=== PATIENT | female | born 1955 | race Hispanic/Latino ===

== ENCOUNTER 2020-04-14 20:28 | Emergency (ER) | payer OTHER ==
--- OUTSIDE RECORDS SUMMARY | 2020-04-14 20:30 | XMS REPORT | Summary of Care ---
:1955 Author Organization [facility] - Health Address [address] [place] [address] Care Team Providers Name Role Phone Destinee Primary Care Provider Encounter Details Date Type Department Care Team Description 02/06/2020 Orders Only [facility] Doctor Unassigned, No [address] [facility] Name [place] [phone] [place] [phone] Allergies Active Allergy Reactions Severity Noted Date Comments Sulfa (Sulfonamide Antibiotics) Rash 9 Sulfamethoxazole Nausea and/or Vomiting Medium 03/21/2016 documented as of this encounter (statuses as of 02/06/2020) Medications Medication Sig Dispensed Refills Start Date End Date Status atorvastatin (LIPITOR) Take 10 mg by 0 Active 10 mg tablet mouth daily. amLODIPine 5 mg tablet 0 08/26/2019 Active anastrozole 1 mg tablet Take by mouth 0 10/10/2019 Active losartan-hydrochlorothi 0 10/23/2019 Active azide 100-12.5 mg per tablet naproxen 375 mg Take 1 tablet by 60 tablet 1 10/31/2019 Active tabletIndications: Left mouth 2 (two) ear pain times daily with meals. documented as of this encounter (statuses as of 02/06/2020) Active Problems No known active problemsdocumented as of this encounter (statuses as of 02/06/2020) Social History Tobacco Use Types Packs/Day Years Used Date Never Smoker Smokeless Tobacco: Never Used Alcohol Use Drinks/Week oz/Week Comments No 0 Standard drinks or equivalent 0.0 Sex Assigned at Date Recorded Not on file Job Start Date Occupation Industry Not on file Not on file Not on file Travel History Travel Start Travel End No recent travel history available. documented as of this encounter Last Filed Vital Signs Not on filedocumented in this encounter Plan of Treatment Date Type Specialty Care Team Description 02/06/2020 Appointment Radiology Diandra Felipe [address] [place], [place] [phone] Health Maintenance Due Date Last Done Comments HEPATITIS C (HCV) SCREEN 1955 DTaP,Tdap,and Td Vaccines 1967 (1 - Tdap) COLONOSCOPY 2006 Zoster Recombinant Vaccine 2006 (SHINGRIX) (1 of 2) PAP SMEAR 04/08/2011 04/08/2008, 01/18/2005, 01/27/2004 INFLUENZA VACCINE (#1) 2019 Breast Cancer Screening 03/06/2020 03/06/2019, 03/05/2018, (MAMMOGRAM) 02/28/2017, Additional history exists PNEUMOCOCCAL 0-64 YEARS Aged Out No longe r eligible COMBINED SERIES based on patient 's age to complete this topic documented as of this encounter Procedures Procedure Name Priority Date/Time Associated Diagnosis Comme nts ASSIGNMENT OF BENEFITS Routine 02/06/2020 9:33 AM CDT documented in this encounter Results Not on filedocumented in this encounter Insurance Payer Benefit Plan / Subscriber ID Effective Dates Phone Addre ss Type Group [facility] [id number] 2017-Prese HMO/ PPO/[facility] PPO nt S documented as of this encounter
--- OUTSIDE RECORDS SUMMARY | 2020-04-14 20:30 | XMS REPORT | Summary of Care ---
:1955 Author Organization [facility] Address [address] [place] [address] Care Team Providers Name Role Phone Felipe Primary Care Provider Reason for Visit Reason Comments DYSURIA patient states she is having discomfort " down there" Back Pain left lower backpain Pelvic Pain Nausea started today Encounter Details Date Type Department Care Team Description 01/24/2020 Urgent Care [facility] Unknown, Attending A cute cystitis without hematuria (Primary Dx); Urgent Care Sam Mauricio PA-C [address] [place] [phone] Dysuria [address] [place] [phone] Allergies Active Allergy Reactions Severity Noted Date Comments Sulfa (Sulfonamide Antibiotics) Rash 9 Sulfamethoxazole Nausea and/or Vomiting Medium 03/21/2016 documented as of this encounter (statuses as of 01/24/2020) Medications Medication Sig Dispensed Refills Start Date End Date Status atorvastatin Take 10 mg by 0 Act brian (LIPITOR) 10 mg mouth daily. tablet amLODIPine 5 mg 0 08/26/2019 Act brian tablet anastrozole 1 mg Take by mouth 0 10/10/2019 Active tablet losartan-hydrochlorot 0 10/23/2019 Active hiazide 100-12.5 mg per tablet naproxen 375 mg Take 1 tablet by 60 tablet 1 10/31/2019 Active tabletIndications: mouth 2 (two) Left ear pain times daily with meals. Nitrofurantoin&Nit. Take 1 capsule 14 capsule 0 01/24/2020 Active Macrocryst (MACROBID) by mouth 2 (two) 100 mg times daily for capsuleIndications: 7 days. Acute cystitis without hematuria documented as of this encounter (statuses as of 01/24/2020) Active Problems No known active problemsdocumented as of this encounter (statuses as of 01/24/2020) Social History Tobacco Use Types Packs/Day Years [...] of this encounter Last Filed Vital Signs Vital Sign Reading Time Taken Comments Blood Pressure 134/88 01/24/2020 7:05 PM [employer] Pulse 75 01/24/2020 7:04 PM [employer] Temperature 36.9 C (98.4 F) 01/24/2020 7:04 PM [employer] Respiratory Rate 18 01/24/2020 7:04 PM [employer] Oxygen Saturation 97% 01/24/2020 7:04 PM [employer] Inhaled Oxygen Concentration - - Weight 68.7 kg (151 lb 6.4 oz) 01/24/2020 7:04 PM [employer] Height 160 cm (5' 3") 01/24/2020 7:04 PM [employer] Body Mass Index 26.82 01/24/2020 7:04 PM [employer] documented in this encounter Patient Instructions Patient InstructionsSam Mauricio PA-C - 01/24/2020 6:45 PM CST Understanding Urinary Tract Infections (UTIs) Most UTIs are caused by bacteria, although they may also be caused by viruses or fungi. Bacteria from the bowel are the most common source of infection.The infection may start because of any of the following: Sexual activity. During sex, bacteria can travel from the penis, vagina, or rectum into the urethra. Bacteria on the skinoutside the rectum may travel into the urethra. This is more common in women since the rectum and urethra are closer to each other than in men. Wiping from front to back after using the toilet and keeping the area clean can help prevent germs from getting to the urethra. Blockage of urine flow through the urinary tract. If urine sits too long, germs may start to growout of control. Parts of the urinary tract The infection canoccur in any part of the urinary tract. The kidneys collect and store urine. The ureters carry urine from the kidneys to the bladder. The bladder holds urine until you are ready to let it out. The urethra carries urine from the bladder out of the body. It is shorter in women, so bacteria can move throughit more easily.The urethra is longer in men, so a UTI is less likely to reach the bladder or kidneys in men. [employer] last reviewed this educational content on 11/20/201619995289-3858 [employer]. [address] [place] [address], [place] [address]. All rights reserved. This information is not intended as a substitute for professional medical care. Always follow your healthcare professional's instructions. 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 URINARY TRACT INFECTION Patient presents to clinic today with complaints of dysuria and frequency. This is a new problem. The current episode started today. The problem is unchanged. The pain is mild. There has been no fever.She describes her urine color as yellow. Associated symptoms include nausea. Pertinent negatives include no abdominal pain, chills, discharge, fever or vomiting. She has tried nothing for the symptoms. Allergies Liliana is allergic to sulfamethoxazole and sulfa (sulfonamide antibiotics). Medications Outpatient Medications Prior to Visit Medication Sig Dispense Refill amLODIPine 5 mg tablet anastrozole 1 mg tablet Take by mouth losartan-hydrochlorothiazide 100-12.5 mg per tablet naproxen 375 mg tablet Take 1 tablet by mouth 2 (two) times daily with meals. 60 tablet 1 atorvastatin (LIPITOR) 10 mg tablet Take 10 mg by mouth daily. No facility-administered medications prior to visit. Histories Past Medical History: Diagnosis Date Breast cancer Chronic back pain Hyperlipidemia Hypertension Past Surgical History: Procedure Laterality Date BREAST BIOPSY BREAST LUMPECTOMY Left 03/23/2016 Surgeon: Anil Bentley MD; Location: [facility] LIPOMA EXCISION Abdomen Social History Socioeconomic History Marital status: Spouse name: Not on file Number of children: Not on file Years of education: Not on file Highest education level: Not on file Occupational History Not on file Social Needs Financial resource strain: Not on file Food insecurity: Worry: Not on file Inability: Not on file Transportation needs: Medical: Not on file Non-medical: Not on file Tobacco Use Smoking status: Never Smoker Smokeless tobacco: Never Used Substance and Sexual Activity Alcohol use: No Alcohol/week: 0.0 standard drinks Drug use: No Sexual activity: Not on file Lifestyle Physical activity: Days per week: Not on file Minutes per session: Not on file Stress: Not on file Relationships Social connections: Talks on phone: Not on file Gets together: Not on file Attends mormon service: Not on file Active member of club or organization: Not on file Attends meetings of clubs or organizations: Not on file Relationship status: Not on file Intimate partner violence: Fear of current or ex partner: Not on file Emotionally abused: Not on file Physically abused: Not on file Forced sexual activity: Not on file Other Topics Concern Not on file Social History Narrative Not on file History reviewed. No pertinent family history. Review of Systems Constitutional: Positive for appetite change. Negative for activity change, chills and fever. Gastrointestinal: Positive for nausea. Negative for abdominal pain, diarrhea and vomiting. Genitourinary: Positive for urgency and frequency. Skin: Negative for rash. Neurological: Negative for dizziness and headaches. Vital Signs BP 134/88 | Pulse 75 | Temp 36.9 C (98.4 F) (Oral) | Resp 18 | Ht 5' 3" (1.6 m) | Wt 151 lb6.4 oz (68.7 kg) | SpO2 97% | BMI 26.82 kg/m Physical Exam Constitutional: She appears well-developed and well-nourished. HENT: Head: Normocephalic. Right Ear: Tympanic membrane and ear canal normal. Left Ear: Tympanic membrane and ear canal normal. Nose: Nose normal. Mouth/Throat: Uvula is midline, oropharynx is clear and moist and mucous membranes are normal. Cardiovascular: Normal rate and regular rhythm. Pulmonary/Chest: Effort normal and breath sounds normal. Abdominal: Soft. Bowel sounds are normal. She exhibits no distension and no mass. There is no hepatosplenomegaly. There is no tenderness. There is no rebound, no guarding and no CVA tenderness. No hernia. Skin: Skin is warm and dry. No rash noted. Nursing note and vitals reviewed. Assessment/Plan Uti. Rx macrobid 100 mg bid for 7 days. Verbal and written home care and follow up instructions given to patient. documented in this encounter Plan of Treatment Name Type Priority Associated Diagnoses Date/Ti me URINE CULTURE LAB Routine Acute cystitis w ithout hematuria 01/24/2020 7:14 PM [employer] Dysuria Health Maintenance Due Date Last Done Comments [...] Name Priority Date/Time Associated Diagnosis Comme nts POCT URINALYSIS Routine 01/24/2020 6:53 PM Dysuria Resul ts for this [employer] procedure are i n the results section. documented in this encounter Results POCT URINALYSIS W SPECIFIC GRAVITY (01/24/2020 6:53 PM [employer]) Pathologist Sig nature POCT U SP GRAV 1.005 1.005 - 1.025 mg/dl POCT PH U 7 5 - 8 mg/dl POCT U LEUK EST ++ Negative - Negative POCT U NIT neg Negative - Negative POCT U PROT neg Negative - Negative POCT U GLU neg Negative - Negative POCT U KETONE neg Negative - Negative POCT U UROBILI neg 0.2 - 1 mg/dl POCT U BILI neg Negative - Negative POCT U BLD neg Negative - Negative POCT U COLOR light yellow POCT U APPEAR clear Specimen Urine - URINE, CLEAN CATCH Narrative Performed At accurate development and interpretation of all interna l controls documented in this encounter Visit Diagnoses Diagnosis Acute cystitis without hematuria - Prima ry Acute cystitis Dysuria documented in this encounter Insurance Payer Benefit Plan / Subscriber ID Effective Dates Phone Addre ss Type Group [facility] [id number] [facility] P[facility] nt S documented as of this encounter
--- OUTSIDE RECORDS SUMMARY | 2020-04-14 20:30 | XMS REPORT ---
:1955 Author Organization [facility] t Address [facility] [place] [address] Care Team Providers Name Role Phone FelipeDiandra mederos Attending Clinician Doctor Unassigned, [place] Attending Clinician Unavailable Hang GO Attending Clinician Problems This patient has no known problems. Allergies, Adverse Reactions, Alerts This patient has no known allergies or adverse reactions. Medications This patient has no known medications. Procedures This patient has no known procedures. Encounters Start End Encounter Admission Attending Care Care Encounter Source Date/Time Date/Time Type Type Clinicians Facility Department ID 2020-02-06 2020-02-06 [facility] [id number] 09:45:00 23:59:00 Encounter Diandra Melendez [id number] [place] [id number] [place] [id number] 2020-02-06 2020-02-06 Orders Doctor MCNALLY [id number] 00:00:00 00:00:00 Only UnassignedWILLI [id number] [place] [facility] [id number] 2020-01-24 2020-01-24 Urgent Hang SCJOSUÉ [id number] 18:53:06 19:08:06 [facility] [id number] Surgical [id number] [facility] [id number] [address] [place] Results This patient has no known results.
--- OUTSIDE RECORDS SUMMARY | 2020-04-14 20:31 | XMS REPORT | Summary of Care ---
:1955 Author Organization [facility] Address [address] [place] [address] Care Team Providers Name Role Phone Destinee Primary Care Provider Reason for Visit (Routine) Status Reason Specialty Diagnoses / Referred By Referred To Procedures Contact Contact New Request Radiology Procedures Diandra Felipe X-Ray XR [facility] [address] [place], [place] [address] [place] Phone: [phone] Phone: Fax: Encounter Details Date Type Department Care Team Description 02/06/2020 Hospital Encounter [facility] Diandra Polk Radiology [address] [place] [address] [place], [place] [phone] Allergies Active Allergy Reactions Severity Noted Date Comments Sulfa (Sulfonamide Antibiotics) Rash 9 Sulfamethoxazole Nausea and/or Vomiting Medium 03/21/2016 documented as of this encounter (statuses as of 02/07/2020) Medications Medication Sig Dispensed Refills Start Date [...] as of this encounter (statuses as of 02/07/2020) Active Problems No known active problemsdocumented as of this encounter (statuses as of 02/07/2020) Social History Tobacco Use Types Packs/Day Years [...] Treatment Date Type Specialty Care Team Description 05/20/2020 Appointment Radiology Diandra Felipe [address] [address] [place], [place] [phone] Health Maintenance Due Date [...] Name Priority Date/Time Associated Diagnosis Comme nts XR KUB Routine 02/06/2020 10:12 AM Renal colic Results for this CDT procedure are i n the results section . documented in this encounter Results XR KUB (02/06/2020 10:12 AM CDT) Specimen Narrative Performed At HISTORY: Abdominal pain. PACS/VR/DOSE FINDINGS: 2 AP supine views of the abdom en are obtained which showed unremarkable intestinal gas pattern. Retained fecal ma terial and air noted mostly right-sided and large bowel. No g aseous distention or any of the intestinal loops seen. No calcified gall stones. No organomegaly. No aggressive bone lesions. CONCLUSIONS: No acute findings. Procedure Note [facility], Radiant Results Inft User - 2019 10:16 AM CDT HISTORY: Abdominal pain. FINDINGS: 2 AP supine views of the abdom en are obtained which showed unremarkable intestinal gas pattern. Ret ained fecal material and air noted mostly right-sided and large bowel. No g aseous distention or any of the intestinal loops seen. No calcified gall stones. No organomegaly. No aggressive bone lesions. CONCLUSIONS: No acute findings. Performing Organization Address City/State/Zipcode Phone Number PACS/VR/DOSE documented in this encounter Visit Diagnoses Diagnosis Renal colic documented in this encounter Insurance Payer Benefit Plan / Subscriber ID Effective Dates Phone Addre ss Type Group [facility] [id number] 2017-[facility] HMO/ PPO/[facility] PPO nt S documented as of this encounter
--- NOTE | 2020-04-14 21:56 | RAD REPORT ---
EXAM DESCRIPTION: CT - [id number] - 04/14/2020 9:44 pm CLINICAL HISTORY: Trauma, head and neck injury. DEFORMITY COMPARISON: No comparisons TECHNIQUE: Axial 5 mm thick images of the head were obtained. Axial 2 mm thick images of the cervical spine were obtained with sagittal and coronal reconstruction images generated and reviewed. All CT scans are performed using dose optimization technique as appropriate and may include automated exposure control or mA/KV adjustment according to patient size. FINDINGS: CT HEAD WITHOUT CONTRAST: No acute hemorrhage, hydrocephalus or extra-axial collection is identified.No areas of brain edema or midline shift. The paranasal sinuses and mastoids are clear.The calvarium is intact. CT CERVICAL SPINE WITHOUT CONTRAST: No fracture or subluxation.Mild lower cervical spondylosis.No prevertebral soft tissues swelling is i dentified. IMPRESSION: No acute intracranial or cervical spine findings.
[2020-04-14] MEDS ORDERED: DERMABOND SKIN ADHESIVE TOP ONE (22:06)
[2020-04-14] MEDS ORDERED: IBUPROFEN 400 MG TAB ONE (22:31)
[2020-04-14] MEDS ORDERED: IBUPROFEN 200 MG TAB PO ONE (22:31)
[2020-04-14 22:50] VITALS: TEMP 98.4
[2020-04-14 22:52] VITALS: BP 132/84; O2SAT 99
--- NOTE | 2020-04-20 13:51 | ER ---
Nurse's Notes [facility] Name: Liliana Ann Age: 64 yrs Sex: Female : 1955 Arrival Date: 04/14/2020 Time: 20:31 Bed 19 Private MD: Diagnosis: Laceration without foreign body of other part of head Presentation: 04/14 20:49 Chief complaint: Patient states: \T\ 2000H my little dog ran into me and i fell in a mg2 concrete outside my house. denies LOC. sustained lac in the forehead. no active bleeding. not on blood thinner. Care prior to arrival: None. Mechanism of Injury: Fall from standing position. Trauma event details: Injury occurred in the [facility], Injury occurred: at home. Injury occurred at: 20:00. 20:49 Method Of Arrival: [place] [facility] [place] 20:49 Acuity: DEBI 3 mg2 21:30 Coronavirus screen: Proceed with normal triage. Patient denies a cough. Patient denies wh shortness of breath or difficulty breathing. Patient reports travel on a cruise ship or to a country the [facility] currently lists as an affected area. Patient denies travel on a cruise ship or to a country the [facility] currently lists as an affected area. Patient denies contact with known and/or suspected case of COVID-19. Ebola Screen: Patient negative for fever greater than or equal to 101.5 degrees Fahrenheit, and additional compatible Ebola Virus Disease symptoms Patient denies exposure to infectious person. Initial Sepsis Screen: Does the patient meet any 2 criteria? No. Patient's initial sepsis screen is negative. Does the patient have a suspected source of infection? No. Patient's initial sepsis screen is negative. Onset of symptoms was April 14, 2020. 21:30 Risk Assessment: Do you want to hurt yourself or someone else? Patient reports no wh desire to harm self or others. Trauma Activation: Not Applicable Physician: ED Physician; Name: ; Notified At: ; Arrived At: Physician: General Surgeon; Name: ; Notified At: ; Arrived At: Physician: Radiology; Name: ; Notified At: ; Arrived At: Physician: Respiratory; Name: ; Notified At: ; Arrived At: Physician: Lab; Name: ; Notified At: ; Arrived At: Historical: - Allergies: 20:53 Bactrim; mg2 - Home Meds: 20:53 anastrozole oral oral [Active]; mg2 - PMHx: 20:53 Hyperlipidemia; Hypertension; mg2 - PSHx: 20:53 breast surgery; mg2 - Immunization history: Last tetanus immunization: - up to date. - Social history:: Patient/guardian denies using alcohol, street drugs, The patient lives with family, Smoking status: Patient/guardian denies using. - Family history:: not pertinent. - Social history: Uses alcohol, occasional. Denies using street drugs, IV drugs, tobacco products. Screenin:30 Abuse screen: Denies threats or abuse. Denies injuries from another. Nutritional wh screening: No deficits noted. Tuberculosis screening: No symptoms or risk factors identified. Fall Risk Fall in past 12 months (25 points). Primary Survey: 20:54 NO uncontrolled hemorrhage observed. A: The patient is alert. Airway: patent. mg2 Breathing/Chest: Respiratory pattern: regular, Respiratory effort: spontaneous, Breath sounds: clear. Circulation: Skin color: pink. Disability Alert. Exposure/Environment: All clothing and personal items were removed. Forensic evidence collection is not deemed to be indicated at this time. Items placed in patient belonging bag. There is no evidence of uncontrolled external bleeding. Assessment: 20:54 General: Appears in no apparent distress. comfortable, Behavior is calm, cooperative. mg2 Pain: Complains of pain in forehead. 21:20 General: Appears in no apparent distress. Behavior is calm, cooperative, appropriate wh for age. Pain: Complains of pain in forehead. Neuro: Level of Consciousness is awake, alert, obeys commands, Oriented to person, place, time, situation, Appropriate for age. Cardiovascular: Capillary refill < 3 seconds. Respiratory: Airway is patent Respiratory effort is even, unlabored, Respiratory pattern is regular, symmetrical. GI: Abdomen is flat, non-distended. : No signs and/or symptoms were reported regarding the genitourinary system. EENT: No signs and/or symptoms were reported regarding the EENT system. Derm: Skin is intact, is healthy with good turgor, Skin is pink, warm \T\ dry. normal. Musculoskeletal: Circulation, motion, and sensation intact. Injury Description: Laceration sustained to forehead is 0.5 to 2.5 cm long, a small amount of bleeding noted at this time. Vital Signs: 20:53 BP 143 / 77; Pulse 79; Resp 18; Temp 98.4; Pulse Ox 100% on R/A; Weight 69.4 kg; Height mg2 5 ft. 2 in. (157.48 cm); Pain 7/10; 22:00 BP 132 / 84; Pulse 76; Resp 18; Pulse Ox 99% on R/A; wh 20:53 Body Mass Index 27.98 (69.40 kg, 157.48 cm) mg2 [place] Coma Score: 20:53 Eye Response: spontaneous(4). Verbal Response: oriented(5). Motor Response: obeys mg2 commands(6). Total: 15. Trauma Score (Adult): 20:53 Eye Response: spontaneous(1); Verbal Response: oriented(1); Motor Response: obeys mg2 commands(2); Systolic BP: > 89 mm Hg(4); Respiratory Rate: 10 to 29 per min(4); Shira Score: 15; Trauma Score: 12 ED Course: 20:31 Patient arrived in ED. cl3 20:51 Triage completed. mg2 20:54 Patient has correct armband on for positive identification. mg2 21:19 Jaziel Dobbs is Primary Nurse. wh 21:20 Ivonne Cazares MD is Attending Physician. ma2 21:30 Arm band placed on right wrist. wh 21:45 CT Head C Spine In Process Unspecified. EDMS 22:00 Assist provider with laceration repair on forehead that was between 2.6 to 7.5 cm using Dermabond. Set up tray. Performed by Ivonne Cazares MD Dressed with band aid, Patient tolerated well. Patient did not have IV access during this emergency room visit. Administered Medications: 22:13 Not Given (Physician Discretion): Lidocaine-Epinephrine -1%: (1:100,000) 10 ml 20 ml Infiltration once; to bedside 22:28 Drug: Motrin 600 mg Route: PO; 22:31 Follow up: Response: No adverse reaction; Pain is decreased Outcome: 22:18 Discharge ordered by . ma2 22:33 Discharged to home ambulatory. 22:33 Condition: stable 22:33 Discharge instructions given to patient, Instructed on discharge instructions, follow up and referral plans. wound care, Demonstrated understanding of instructions, follow-up care, wound care. 22:35 Patient left the ED. Signatures: Dispatcher [employer] EDMS Jaziel Dobbs Ivonne Cazares MD MD ma2 Jeremiah Pedraza RN RN mg2 Mehdi Mistry cl3 Corrections: (The following items were deleted from the chart) 20:56 20:49 Acuity: DEBI 4 mg2 mg2
--- NOTE | 2020-04-20 13:51 | EDPHYS ---
Physician Documentation [facility] Name: Liliana Ann Age: 64 yrs Sex: Female : 1955 Arrival Date: 04/14/2020 Time: 20:31 Bed 19 Private MD: ED Physician Ivonne Cazares HPI: 04/14 22:15 This 64 yrs old Female presents to ER via Ambulatory with complaints of Fall ma2 Injury. 22:15 Details of fall: The patient fell from an upright position. Onset: The symptoms/episode ma2 began/occurred suddenly, 1 hour(s) ago. Severity of symptoms: At their worst the symptoms were very mild, in the emergency department the symptoms have resolved, are actually worse, shortness of breath. The patient has not experienced similar symptoms in the past. Historical: - Allergies: 20:53 Bactrim; mg2 - Home Meds: 20:53 anastrozole oral oral [Active]; mg2 - PMHx: 20:53 Hyperlipidemia; Hypertension; mg2 - PSHx: 20:53 breast surgery; mg2 - Immunization history: Last tetanus immunization: - up to date. - Social history:: Patient/guardian denies using alcohol, street drugs, The patient lives with family, Smoking status: Patient/guardian denies using. - Family history:: not pertinent. - Social history: Uses alcohol, occasional. Denies using street drugs, IV drugs, tobacco products. ROS: 22:15 Constitutional: Negative for fever, chills, and weight loss. ma2 22:15 All other systems are negative. Exam: 22:15 Constitutional: This is a well developed, well nourished patient who is awake, alert, ma2 and in no acute distress. Head/Face: Normocephalic,superficial abrasion atraumatic. Eyes: Pupils equal round and reactive to light, extra-ocular motions intact. Lids and lashes normal. Conjunctiva and sclera are non-icteric and not injected. Cornea within normal limits. Periorbital areas with no swelling, redness, or edema. ENT: Nares patent. No nasal discharge, no septal abnormalities noted. Tympanic membranes are normal and external auditory canals are clear. Oropharynx with no redness, swelling, or masses, exudates, or evidence of obstruction, uvula midline. Mucous membranes moist. Neck: Trachea midline, no thyromegaly or masses palpated, and no cervical lymphadenopathy. Supple, full range of motion without nuchal rigidity, or vertebral point tenderness. No Meningismus. Chest/axilla: Normal chest wall appearance and motion. Nontender with no deformity. No lesions are appreciated. Cardiovascular: Regular rate and rhythm with a normal S1 and S2. No gallops, murmurs, or rubs. Normal PMI, no JVD. No pulse deficits. Respiratory: Lungs have equal breath sounds bilaterally, clear to auscultation and percussion. No rales, rhonchi or wheezes noted. No increased work of breathing, no retractions or nasal flaring. Abdomen/GI: Soft, non-tender, with normal bowel sounds. No distension or tympany. No guarding or rebound. No evidence of tenderness throughout. Back: No spinal tenderness. No costovertebral tenderness. Full range of motion. MS/ Extremity: Pulses equal, no cyanosis. Neurovascular intact. Full, normal range of motion. Neuro: Awake and alert, GCS 15, oriented to person, place, time, and situation. Cranial nerves II-XII grossly intact. Motor strength 5/5 in all extremities. Sensory grossly intact. Cerebellar exam normal. Normal gait. Vital Signs: 20:53 BP 143 / 77; Pulse 79; Resp 18; Temp 98.4; Pulse Ox 100% on R/A; Weight 69.4 kg; Height mg2 5 ft. 2 in. (157.48 cm); Pain 7/10; 22:00 BP 132 / 84; Pulse 76; Resp 18; Pulse Ox 99% on R/A; wh 20:53 Body Mass Index 27.98 (69.40 kg, 157.48 cm) mg2 [place] Coma Score: 20:53 Eye Response: spontaneous(4). Verbal Response: oriented(5). Motor Response: obeys mg2 commands(6). Total: 15. Trauma Score (Adult): 20:53 Eye Response: spontaneous(1); Verbal Response: oriented(1); Motor Response: obeys mg2 commands(2); Systolic BP: > 89 mm Hg(4); Respiratory Rate: 10 to 29 per min(4); [place] Score: 15; Trauma Score: 12 Laceration: 22:15 Wound Repair of 2cm ( 0.8in ) subcutaneous laceration to face. Distal ma2 neuro/vascular/tendon intact. Wound prep: Extensive cleansing. Skin closed with 1-0 Adhesive skin closure using simple sutures and sterile technique. Dressed with 4x4's. Patient tolerated well. MDM: 21:20 Patient medically screened. ks2 22:15 Differential diagnosis: contusion, fracture, laceration, multiple trauma. Data ks2 reviewed: vital signs, nurses notes. Counseling: I had a detailed discussion with the patient and/or guardian regarding: the historical points, exam findings, and any diagnostic results supporting the discharge/admit diagnosis, the presence of at least one elevated blood pressure reading (>120/80) during this emergency department visit, the need for outpatient follow up. Response to treatment: the patient's symptoms have markedly improved after treatment. 04/14 21:33 Order name: CT Head C Spine; Complete Time: 22:18 [facility] 04/14 21:35 Order name: Dressing - Wound; Complete Time: 22:13 [facility] 04/14 21:35 Order name: Gloves, Sterile; Complete Time: 22:13 [facility] 04/14 22:12 Order name: Dermabond; Complete Time: 22:12 04/14 22:18 Order name: Dressing - Wound; Complete Time: 22:19 [facility] Administered Medications: 22:13 Not Given (Physician Discretion): Lidocaine-Epinephrine -1%: (1:100,000) 10 ml 20 ml Infiltration once; to bedside 22:28 Drug: Motrin 600 mg Route: PO; 22:31 Follow up: Response: No adverse reaction; Pain is decreased Disposition: 04/14/20 22:18 Discharged to Home. Impression: Laceration without foreign body of other part of head. - Condition is Stable. - Discharge Instructions: Laceration Care, Adult. - Medication Reconciliation Form, Thank You Letter, Antibiotic Education, Prescription Opioid Use form. - Follow up: Private Physician; When: Today; Reason: If symptoms return, Continuance of care. Signatures: Dispatcher [employer] EDMS Jaziel Dobbs Ivonne Cazares MD MD ks2 Jeremiah Pedraza RN RN mg2 Corrections: (The following items were deleted from the chart) 22:13 21:35 Sutures, Prolene ordered. [facility] 22:13 21:35 Setup Suture Tray ordered. [facility] 22:35 22:18 04/14/2020 22:18 Discharged to Home. Impression: Laceration without foreign body wh of other part of head. Condition is Stable. Forms are Medication Reconciliation Form, Thank You Letter, Antibiotic Education, Prescription Opioid Use. Follow up: Private Physician; When: Today; Reason: If symptoms return, Continuance of care. ma2
== END 2020-04-14 22:35 | disposition home or self-care (01) ==
LOC: ER 20:28
PROC: 0JQ10ZZ Repair Face Subcutaneous Tissue and Fascia, Open Approach (ICD-10-PCS; principal; 2020-04-14)
DX: S01.81XA Laceration without foreign body of other part of head, initial encounter (principal); I10 Essential (primary) hypertension; E78.5 Hyperlipidemia, unspecified; Z88.1 Allergy status to other antibiotic agents
CPT/HCPCS: 70450; 72125; 99283